=== PATIENT | female | born 1975 | race Caucasian/White ===

== ENCOUNTER 2019-08-18 05:08 | Day surgery (SDC) | payer BC ==
[2019-08-17 16:00] LABS: CLARITY,URINE CLEAR (Clear); COLOR,URINE STRAW (Yellow); GLUCOSE, URINE NEGATIVE (Neg); KETONES,URINE NEGATIVE (Neg); LEUKOCYTE ESTERASE ,URINE NEGATIVE (Neg); NITRITES, URINE NEGATIVE (Neg); OCCULT BLOOD,URINE SMALL (Neg); PROTEIN,URINE NEGATIVE (Neg); UROBILINOGEN,URINE 0.2 E.U/dL (0.2-1.0)
[2019-08-17 16:04] LABS: UA COLLECTION TYPE CLN CATCH MIDSTREAM
[2019-08-17 16:05] LABS: BASOPHILS % (AUTO) 0.5 % (0-1); EOSINOPHILS # (AUTO) 0.1 X10'3 (0-0.9); EOSINOPHILS % (AUTO) 1.5 % (0-6); LYMPHOCYTES # (AUTO) 2.3 X10'3 (1.1-4.8); LYMPHOCYTES % (AUTO) 24.6 % (21-51); MEAN CORPUSCULAR HEMOGLOBIN 30.5 PG (27.0-31.0); MEAN CORPUSCULAR HGB CONC 33.8 g/dL (33.0-36.5); MEAN CORPUSCULAR VOLUME 90.2 FL (78-98); MEAN PLATELET VOLUME 7.5 FL (7.4-10.4); MONOCYTES # (AUTO) 0.7 X10'3 (0-0.9); MONOCYTES % (AUTO) 7.2 % (2-12); NEUTROPHILS # (AUTO) 6.2 X10'3 (1.8-7.7); NEUTROPHILS % (AUTO) 66.2 % (42-75); PRE OP HEMATOCRIT 39.6 % (35.0-45.0); PRE OP HEMOGLOBIN 13.4 g/dL (12.0-16.0); PRE OP PLATELET COUNT 310 X10'3 (140-440); RED BLOOD COUNT 4.39 X10'6 (4.20-5.60); RED CELL DISTRIBUTION WIDTH 15.2 % (11.5-14.5)
[2019-08-17 16:07] LABS: BACTERIA,URINE NONE SEEN /HPF (Neg); MUCUS STRANDS NONE SEEN /LPF (Neg); RBC,URINE 0-2 /HPF (0-2); SQUAMOUS EPITHELIAL CELL,UR FEW /LPF (FEW); WBC,URINE NONE SEEN /HPF (0-4)
[2019-08-17 16:16] LABS: ALBUMIN 3.9 G/DL (3.4-5.0); ALBUMIN/GLOBULIN RATIO 1.1 (1.1-1.5); ALKALINE PHOSPHATASE 63 IU/L (46-116); BLOOD UREA NITROGEN 11 MG/DL (7-18); BUN/CREATININE RATIO 17.7 (6.6-38.0); CHLORIDE 103 MMOL/L (99-107); CREATININE 0.62 MG/DL (0.40-0.90); PRE OP ALT 26 U/L (30-65); PRE OP ANION GAP 7 (8-16); PRE OP AST 19 U/L (10-37); PRE OP BILIRUB, TOTAL 0.5 MG/DL (0.0-1.0); PRE OP GLUCOSE 86 MG/DL (70-104); PRE OP POTASSIUM 3.5 MMOL/L (3.4-5.1); PRE OP SODIUM 137 MMOL/L (135-145); TOTAL CARBON DIOXIDE 26.7 MMOL/L (24-32); TOTAL PROTEIN 7.6 G/DL (6.4-8.2); eGFR > 90 ML/MIN
[2019-08-17 16:20] LABS: PRE OP INR < 0.9 INR; PRE OP PARTIAL THROMB. TIME 27 SECONDS (22-32); PRE OP PROTIME 9.8 SECONDS (9.0-12.0)
[2019-08-17 17:06] LABS: HCG SERUM QL NEGATIVE
[~2019-08-18] VITALS: Ht 157.5 cm; Wt 64.0 kg
[2019-08-18] VITALS (9 sets, daily range): BP systolic 118–140; BP diastolic 63–86
[~2019-08-18 05:08] MED LIST: NO HOME MEDS; ringers solution, lacted 1,000 ML IV SCH
[2019-08-18] MEDS ORDERED: famotidine 20mg tablet PO ONE (05:30)
[2019-08-18] MEDS ORDERED: TRANEXAMIC ACID IN NACL,ISO-OS 100 ML IV ONE (05:30)
[2019-08-18] MEDS ORDERED: ceFOXitin 2 GM ADDvantage bag 100 ML IV ONE (05:30)
[2019-08-18] MEDS ORDERED: LIDOcaine 1% (10mg/ml) 2ml vial ONE (05:52)
[2019-08-18] MEDS ORDERED: BUPIVAcaine/PF 2.5 mg/ml (0.25%) 30ml vial ONE (06:38)
[2019-08-18] MEDS ORDERED: ondansetron/PF 4mg/2ml inj IV PRN ×2 (07:10)
[2019-08-18] MEDS ORDERED: labetalol 20mg/4ml (5mg/ml) syringe IV PRN (07:10)
[2019-08-18] MEDS ORDERED: hydrALAZINE 20mg/ml inj. IV PRN (07:10)
[2019-08-18] MEDS ORDERED: morphine 4 MG/ML inj SYRINge IV PRN ×2 (07:10)
[2019-08-18] MEDS ORDERED: ringers solution, lacted 1,000 ML IV SCH ×2 (07:10)
[2019-08-18] MEDS ORDERED: fentaNYL/PF 50MCG/1 ML 2ML syringe IV PRN ×2 (07:10)
[2019-08-18] MEDS ORDERED: sevoflurane 250ml liquid IH ONE (07:12)
[2019-08-18] MEDS ORDERED: MIDAZolam 5mg/5ml vial ONE (07:14)
[2019-08-18] MEDS ORDERED: fentaNYL/PF 50MCG/1 ML 2ML syringe ONE ×2 (07:14→09:04)
[2019-08-18] MEDS ORDERED: propofol inj 20 ML IV ONE (07:37)
[2019-08-18] MEDS ORDERED: LIDOcaine 2% (20mg/ml) 5ml vial ONE (07:37)
[2019-08-18] MEDS ORDERED: rocuronium 10mg/ml inj IV ONE ×2 (07:37→08:13)
[2019-08-18] MEDS ORDERED: dexamethasone sod phosphate 4mg/ml inj. ONE (07:40)
[2019-08-18] MEDS ORDERED: ondansetron/PF 4mg/2ml inj ONE (07:40)
[2019-08-18] MEDS ORDERED: glycopyrrolate 0.2mg/ml inj ONE (07:40)
[2019-08-18] MEDS ORDERED: neostigmine methylsulfate 1 MG/ML 10ml vial ONE (07:40)
[2019-08-18] MEDS ORDERED: labetalol 20mg/4ml (5mg/ml) syringe IV ONE (08:11)
--- NOTE | 2019-08-18 10:59 | NUR ---
D/C INSTRUCTIONS GIVEN AND GONE OVER W/PT AND PTS MOTHER, BOTH VERBALIZE UNDERSTANDING, PT D/CD TO HOME VIA W/C TO PRIVATE VEHICLE W/O INCIDENT. Addendum: 08/18/19 at 1114 by Jenny Zaragoza RN Amended: Links added.
== END 2019-08-18 10:59 | disposition home or self-care (01) ==
LOC: PAS 05:08
PROVIDERS: ATTEND Obstetrics & Gynecology
DX: N92.0 Excessive and frequent menstruation with regular cycle (principal); N94.6 Dysmenorrhea, unspecified; N87.9 Dysplasia of cervix uteri, unspecified; D25.9 Leiomyoma of uterus, unspecified; N83.8 Other noninflammatory disorders of ovary, fallopian tube and broad ligament; D64.9 Anemia, unspecified; Z79.899 Other long term (current) drug therapy; Z79.01 Long term (current) use of anticoagulants
CPT/HCPCS: 36415; 58571; 80053; 81001; 82948; 84703; 85025; 85610; 85730; 86885; 86900; 86901; C1758; J0694; J1100; J2001; J2250; J2270; J2405; J2704; J2710; J3010; J3490; J7120; S2900; A4618; A7000

== ENCOUNTER 2024-02-17 07:23 | Emergency (ER) | payer BC ==
[~2024-02-17] VITALS: Ht 154.9 cm; Wt 62.5 kg
[~2024-02-17 07:23] MED LIST changes: -ringers solution, lacted 1,000 ML IV SCH
[2024-02-17 08:38] LABS: BILIRUBIN,URINE NEGATIVE (Neg); CLARITY,URINE SLIGHTLY CLOUDY (Clear); COLOR,URINE YELLOW (Yellow); GLUCOSE, URINE NEGATIVE (Neg); KETONES,URINE NEGATIVE (Neg); LEUKOCYTE ESTERASE ,URINE NEGATIVE (Neg); NITRITES, URINE NEGATIVE (Neg); OCCULT BLOOD,URINE NEGATIVE (Neg); PROTEIN,URINE NEGATIVE (Neg); UROBILINOGEN,URINE 0.2 E.U/dL (0.2-1.0)
[2024-02-17 08:45] LABS: UA COLLECTION TYPE CLN CATCH MIDSTREAM
[2024-02-17 08:46] LABS: BACTERIA,URINE FEW /HPF (Neg); RBC,URINE NONE SEEN /HPF (0-2); SQUAMOUS EPITHELIAL CELL,UR MODERATE /LPF (FEW); WBC,URINE 0-4 /HPF (0-4)
[2024-02-17] MEDS: ondansetron 4mg rapidly disintigrating tab PO ONE (08:59)
[2024-02-17] MEDS: normal saline 1000ML IV soln IVB ONE (09:26)
[2024-02-17] MEDS: normal saline 1000ml 1,000 ML IV ONE ×2 (10:10→10:32)
[2024-02-17 10:14] LABS: ALANINE AMINOTRANSFERASE 18 U/L (12-78); ALBUMIN 3.3 G/DL (3.4-5.0); ALBUMIN/GLOBULIN RATIO 0.8 (1.1-1.5); ALKALINE PHOSPHATASE 72 IU/L (46-116); ANION GAP 10 (8-16); ASPARTATE AMINO TRANSFERASE 11 U/L (10-37); BLOOD UREA NITROGEN 6 MG/DL (7-18); BUN/CREATININE RATIO 9.2 (10.0-20.0); CALCIUM 9.1 MG/DL (8.5-10.1); CHLORIDE 104 MMOL/L (99-107); CREATININE 0.65 MG/DL (0.40-0.90); GLUCOSE 93 MG/DL (70-104); LIPASE 30 U/L (16-77); POTASSIUM 3.7 MMOL/L (3.5-5.1); SODIUM 140 MMOL/L (135-145); TOTAL CARBON DIOXIDE 25.6 MMOL/L (24-32); TOTAL PROTEIN 7.4 G/DL (6.4-8.2); eCRCL 80 ML/MIN; eGFR > 90 ML/MIN
[2024-02-17] MEDS ORDERED: iohexol 300mg/ml 100ml inj. ONE (10:29)
[2024-02-17] MEDS ORDERED: ONDA8TAB13 PO (11:28)
[2024-02-17] MEDS ORDERED: OXYC-658 PO ×2 (11:28→11:31)
[2024-02-17] MEDS ORDERED: AMOX-117 PO (11:28)
[2024-02-17 11:56] LABS: BASOPHILS % (AUTO) 0.3 % (0-1); EOSINOPHILS # (AUTO) 0.1 X10'3 (0-0.9); EOSINOPHILS % (AUTO) 0.6 % (0-6); HEMATOCRIT 33.4 % (35.0-45.0); HEMOGLOBIN 11.1 g/dl (12.0-16.0); LYMPHOCYTES # (AUTO) 1.8 X10'3 (1.1-4.8); LYMPHOCYTES % (AUTO) 18.6 % (21-51); MEAN CORPUSCULAR HEMOGLOBIN 30.1 PG (27.0-31.0); MEAN CORPUSCULAR HGB CONC 33.3 g/dL (33.0-36.5); MEAN CORPUSCULAR VOLUME 90.4 FL (78-98); MEAN PLATELET VOLUME 7.4 FL (7.4-10.4); MONOCYTES # (AUTO) 0.8 X10'3 (0-0.9); MONOCYTES % (AUTO) 7.8 % (2-12); NEUTROPHILS % (AUTO) 72.7 % (42-75); PLATELET COUNT 181 X10'3 (140-440); RED CELL DISTRIBUTION WIDTH 14.3 % (11.5-14.5); WHITE BLOOD COUNT 9.7 X10'3 (4.5-11.0)
[2024-02-17 12:08] VITALS: BP 100/66; PULSE 78; RESP 14; TEMP 98.7; O2SAT 99
== END 2024-02-17 12:10 | disposition home or self-care (01) ==
LOC: ER 07:23
DX: K57.30 Diverticulosis of large intestine without perforation or abscess without bleeding (principal); Z79.2 Long term (current) use of antibiotics; Z79.899 Other long term (current) drug therapy
CPT/HCPCS: 36415; 74177; 80053; 81001; 83605; 83690; 84145; 85025; 96360; 96361; 99285; J3490; J7030; Q9967